=== PATIENT | female | born 1980 | race Caucasian/White ===

== ENCOUNTER 2016-07-27 09:55 | Emergency (ER) | payer OTHER | END 2016-07-27 11:37 | disposition home or self-care (01) | LOC: ER 09:55 | DX: N39.0 Urinary tract infection, site not specified (principal); R31.9 Hematuria, unspecified; F31.9 Bipolar disorder, unspecified; F32.9 Major depressive disorder, single episode, unspecified; E11.65 Type 2 diabetes mellitus with hyperglycemia; F17.210 Nicotine dependence, cigarettes, uncomplicated; Z90.49 Acquired absence of other specified parts of digestive tract; Z90.89 Acquired absence of other organs; Z90.710 Acquired absence of both cervix and uterus; Z79.899 Other long term (current) drug therapy; Z79.4 Long term (current) use of insulin; Z88.8 Allergy status to other drugs, medicaments and biological substances | CPT/HCPCS: 96372 ==

== ENCOUNTER 2016-08-26 12:33 | Emergency (ER) | payer OTHER | END 2016-08-26 17:12 | disposition home or self-care (01) | LOC: ER 12:33 | DX: R07.89 Other chest pain (principal); M79.604 Pain in right leg; M79.605 Pain in left leg; R11.0 Nausea; R00.2 Palpitations; R06.02 Shortness of breath; M54.9 Dorsalgia, unspecified; E11.65 Type 2 diabetes mellitus with hyperglycemia; F31.9 Bipolar disorder, unspecified; Z90.49 Acquired absence of other specified parts of digestive tract; Z90.710 Acquired absence of both cervix and uterus; Z79.4 Long term (current) use of insulin; Z79.899 Other long term (current) drug therapy; Z88.8 Allergy status to other drugs, medicaments and biological substances; Z87.891 Personal history of nicotine dependence | CPT/HCPCS: 36415; 96361; 96374 ==